=== PATIENT | female | born 1940 | race Caucasian/White ===

== ENCOUNTER 2017-06-25 10:03 | Day surgery (SDC) | payer MEDICARE, OTHER ==
[~2017-06-25] VITALS: Ht 160 cm; Wt 69.6 kg
[2017-06-25] MEDS ORDERED: PANT40 PO (10:44)
[2017-06-25] MEDS ORDERED: LEVSOD150 PO (10:44)
== END 2017-06-25 12:00 | disposition home or self-care (01) ==
LOC: ORSCSDS 10:03
PROVIDERS: Internal Medicine Gastroenterology
PROC: 0DB68ZX Excision of Stomach, Via Natural or Artificial Opening Endoscopic, Diagnostic (ICD-10-PCS; principal; 2017-06-25 11:15)
PROC: 0DB58ZX Excision of Esophagus, Via Natural or Artificial Opening Endoscopic, Diagnostic (ICD-10-PCS; principal; 2017-06-25 11:15)
DX: K22.70 Barrett's esophagus without dysplasia (principal); K29.60 Other gastritis without bleeding; K44.9 Diaphragmatic hernia without obstruction or gangrene; E03.9 Hypothyroidism, unspecified; Z79.899 Other long term (current) drug therapy
CPT/HCPCS: 87081; 88305; J7120

== ENCOUNTER → 2021-05-09 | Outpatient (CLI) | payer MEDICARE, OTHER ==
[~2021-05-09] MED LIST: LEVSOD150 PO; PANT40 PO
== END | disposition home or self-care (01) ==
LOC: LAB SHORT 11:36
DX: E03.9 Hypothyroidism, unspecified (principal)
CPT/HCPCS: 36415; 84443

== ENCOUNTER 2021-12-23 08:16 | Day surgery (SDC) | payer MEDICARE, OTHER | END 2021-12-30 23:06 | disposition home or self-care (01) | LOC: MOI US 08:16 | DX: D05.01 Lobular carcinoma in situ of right breast (principal) | CPT/HCPCS: 19285; 77065; A4648; G0279 ==

== ENCOUNTER 2022-01-06 08:40 | Day surgery (SDC) | payer MEDICARE, OTHER ==
[~2022-01-06] VITALS: Ht 160 cm; Wt 66.9 kg
--- NOTE | 2022-01-06 10:36 | NUR ---
01/06/22 1036 Kristen Brooks PATIENTS BILATERAL HEARING AIDS GIVEN TO ALISSA.
--- NOTE | 2022-01-06 11:23 | NUR ---
01/06/22 1123 Urvashi Aviles 15MLS OF BUPIVICAINE 0.75% MIXED 1:1 WITH 15MLS BUPIVICAINE 0.25% TO CREATE A LOCAL SOLUTION OF BUPIVICAINE 0.5%. ALL 30MLS USED DURING CASE.
--- NOTE | 2022-01-06 13:34 | NUR ---
01/06/22 1334 HEIDI CROW PT UP TO ARMCHAIR, TOLERATING PO INTAKE. NO NAUSEA. PAIN 4-5/10, AFTER 50 MCG IV FENTANYL AND ONE TAB NORCO. PT REPORTS THIS IS TOLERABLE.
== END 2022-01-06 14:00 | disposition home or self-care (01) ==
LOC: ORSCSDS 08:40 → NM 09:00 → ORSCSDS 14:00
PROVIDERS: Surgery
PROC: 07B50ZX Excision of Right Axillary Lymphatic, Open Approach, Diagnostic (ICD-10-PCS; principal; 2022-01-06 10:30)
PROC: 0HBT0ZZ Excision of Right Breast, Open Approach (ICD-10-PCS; principal; 2022-01-06 10:30)
DX: D05.01 Lobular carcinoma in situ of right breast (principal); Z17.0 Estrogen receptor positive status [ER+]; D36.0 Benign neoplasm of lymph nodes
CPT/HCPCS: 38792; 76098; 88307; 88342; A9270; A9520; J0690; J1100; J1885; J2250; J2405; J2704; J3010; J7120; Q9968

== ENCOUNTER 2022-02-09 07:39 | Day surgery (SDC) | payer MEDICARE, OTHER ==
[~2022-02-09] VITALS: Ht 157.5 cm; Wt 66.0 kg
[2022-02-09] MEDS ORDERED: MULVITA (08:46)
[2022-02-09] MEDS ORDERED: KRILL OIL500 MG (08:46)
[2022-02-09] MEDS ORDERED: Acetaminophen650 M1 (08:47)
[2022-02-09] MEDS ORDERED: IBUP200 (08:47)
--- NOTE | 2022-02-09 10:56 | NUR ---
Patient up to Ambulate independently. Gait steady. Discharge instructions reviewed with patient. Patient verbalizes understanding. Copy given to patient to take home.Lungs clear T/O to Auscultation. Dressing to procedure site clean, dry, intact with no visible drainage, swelling, erythema or bruising noted. Discharged via wheelchair to private car for ride home.
== END 2022-02-09 22:37 | disposition home or self-care (01) ==
LOC: ORSCMMR 07:39 → ORD 09:00 → ORSCMMR 09:00
PROVIDERS: Surgery
PROC: 0HBT0ZZ Excision of Right Breast, Open Approach (ICD-10-PCS; principal; 2022-02-09 09:00)
DX: D05.01 Lobular carcinoma in situ of right breast (principal); Z17.0 Estrogen receptor positive status [ER+]
CPT/HCPCS: A9270; J0690; J1100; J1885; J2250; J2405; J2704; J2710; J2795; J3010; J7120

== ENCOUNTER 2022-11-01 09:58 | Day surgery (SDC) | payer MEDICARE, OTHER ==
[~2022-11-01] VITALS: Ht 160 cm; Wt 68.0 kg
[~2022-11-01 09:58] MED LIST changes: +Acetaminophen650 M1; +IBUP200; +KRILL OIL500 MG; +MULVITA
[2022-11-01] MEDS ORDERED: LEVSOD75 (10:15)
[2022-11-01] MEDS ORDERED: ERGO400 (10:16)
[2022-11-01] MEDS ORDERED: ANASTROZOLE1 M7 (10:16)
[2022-11-01] MEDS ORDERED: Vitamin C100 M1 (10:16)
[2022-11-01] MEDS ORDERED: MULVITA (10:16)
[2022-11-01 11:58] VITALS: BP 105/64
== END 2022-11-01 12:00 | disposition home or self-care (01) ==
LOC: ORSCSDS 09:58
PROVIDERS: Internal Medicine Gastroenterology
PROC: 0DB58ZX Excision of Esophagus, Via Natural or Artificial Opening Endoscopic, Diagnostic (ICD-10-PCS; principal; 2022-11-01 11:15)
PROC: 0DB68ZX Excision of Stomach, Via Natural or Artificial Opening Endoscopic, Diagnostic (ICD-10-PCS; principal; 2022-11-01 11:15)
DX: K22.70 Barrett's esophagus without dysplasia (principal); K21.9 Gastro-esophageal reflux disease without esophagitis; Z79.899 Other long term (current) drug therapy
CPT/HCPCS: 88305; 88312; 88342; J2704; J7120

== ENCOUNTER → 2024-03-13 | Outpatient (CLI) | payer MEDICARE, OTHER ==
[~2024-03-13] MED LIST changes: +ANASTROZOLE1 M7; +ERGO400; +LEVSOD75; +Vitamin C100 M1
== END | disposition home or self-care (01) ==
LOC: LAB 12:57 → LAB SHORT 12:57
DX: L98.9 Disorder of the skin and subcutaneous tissue, unspecified (principal)
CPT/HCPCS: 87070; 87077; 87147; 87186; 87205